=== PATIENT | male | born 1945 | race Two or more races ===

== ENCOUNTER 2017-06-16 11:29 | Emergency (ER) | payer OTHER ==
[~2017-06-16] VITALS: Ht 167.6 cm; Wt 86.2 kg
[2017-06-16 13:13] VITALS: BP 124/75
[2017-06-16] MEDS ORDERED: KETOROLAC TROMETH 60MG/2ML VIAL IM ONE (14:15)
== END 2017-06-16 14:46 | disposition home or self-care (01) ==
LOC: ER 11:39
DX: S46.911A Strain of unspecified muscle, fascia and tendon at shoulder and upper arm level, right arm, initial encounter (principal); M19.011 Primary osteoarthritis, right shoulder; I10 Essential (primary) hypertension; E07.9 Disorder of thyroid, unspecified; G89.29 Other chronic pain; W18.39XA Other fall on same level, initial encounter; Y93.89 Activity, other specified; Y92.89 Other specified places as the place of occurrence of the external cause; Y99.8 Other external cause status
CPT/HCPCS: 73030; 73060; 96372; 99284; J1885